=== PATIENT | male | born 1980 | race African-American/Black ===

== ENCOUNTER 2016-07-11 08:00 | Day surgery (SDC) | payer BC ==
[~2016-07-11 08:00] MED LIST: Lactated Ringers 1,000 ML IV SCH; Sodium Chloride 0.9% 10 ML Syringe FLUSH PRN
[2016-07-11] MEDS ORDERED: Ondansetron 4 MG/2 ML SDV ONE (08:17)
[2016-07-11] MEDS ORDERED: Glycopyrrolate 0.2 MG/ML SDV ONE (08:17)
[2016-07-11] MEDS ORDERED: Midazolam 1 MG/ML 2 ML SDV ONE ×2 (08:17→08:21)
[2016-07-11] MEDS ORDERED: Rocuronium 100 MG/10 ML MDV ONE (08:17)
[2016-07-11] MEDS ORDERED: ceFAZolin 1 GM Vial ONE (08:17)
[2016-07-11] MEDS ORDERED: Dexamethasone 10 MG/ML SDV ONE (08:17)
[2016-07-11] MEDS ORDERED: Neostigmine Methylsulfate 1 MG/ML 5 ML Syringe ONE (08:17)
[2016-07-11] MEDS ORDERED: fentaNYL 250 MCG/5 ML SDV ONE ×2 (08:17→08:22)
[2016-07-11] MEDS ORDERED: Propofol 200 MG/20 ML SDV ONE ×2 (08:17→08:22)
--- NOTE | 2016-07-11 11:42 | OR ---
Date of Procedure: 07/11/2016 PREOPERATIVE DIAGNOSIS: Balanitis. POSTOPERATIVE DIAGNOSIS: Balanitis. PROCEDURE: Circumcision. ANESTHESIA: General. COMPLICATION: None. SPECIMEN: Foreskin-not submitted. ESTIMATED BLOOD LOSS: Negligible. DRAINS: None. COMPLICATIONS: None. WHAT WAS DONE: The patient was placed on the operative table in the supine position. Under general anesthesia, the foreskin was retracted approximately 0.5 cm below the coronal margin. A circumferential incision was made. I then placed the foreskin back in anatomic position, and roughly at the glanular margin level. We made a circumferential incision in cigar band fashion, this was removed, I did make a dorsal slit in removing it. Hemostasis was inspected for and ensured with electrocautery. The 4-0 Vicryl was used for closure, two sutures were placed to approximate the median raphe to the frenulum, and one suture was placed direct dorsal, quartering sutures were placed, and three stitches were placed in each quadrant. The wound was infiltrated with 2% lidocaine. A compression dressing was placed with some Elastoplast which was wrapped "accordion fashion", and a piece of a Elastoplast was just put around the penis and taped to itself not wrapped continually circumferential. He tolerated this without difficulty. ROMEL Stahl MD /[id number]
[2016-07-11 11:45] VITALS: BP 138/97
== END 2016-07-11 13:47 | disposition home or self-care (01) ==
LOC: LL.SDS 08:00
PROVIDERS: ATTEND Urology
DX: N48.1 Balanitis (principal)
CPT/HCPCS: 54161; J0690; J1100; J2250; J2405; J2704; J3010; J7120

== ENCOUNTER 2016-08-15 05:24 | Emergency (ER) | payer BC ==
[2016-08-15] MEDS ORDERED: Sodium Chloride 0.9% 10 ML Syringe FLUSH PRN (05:32)
--- NOTE | 2016-08-15 05:32 | EDM.PDOC ---
ED HPI HEAD INJURY - General Chief Complaint: Neuro Symptoms/Deficits Stated Complaint: Head injury Time Seen by Provider: 08/15/16 05:25 Source of Information: Reports: Patient, EMS, EMS notes reviewed. Denies: Old records (No [facility] records available) History Limitations: Reports: Altered mental status - History of Present Illness INITIAL COMMENTS - FREE TEXT/NARRATIVE: Patient was brought to the emergency room via ambulance with basic transport for evaluation of a head injury, which occurred at work at about 04:45 hours this morning. 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 Since that time the patient has been lethargic with frequent episodes of emesis. Secondary to his current mental status a complete history could not be obtained. No apparent history of seizure activity or other injuries or complaints. The patient is somewhat more alert at time of my arrival to the emergency room. He denies any pain or discomfort, although he is a poor historian as above. He did not have any symptoms prior to the above injury with the patient now denying any head injury. The patient apparently had a brief episode of loss of consciousness after falling backwards on the occipital region and was observed at the nurse's station at [facility] for a few minutes with moderate sedation and recurrent emesis, which became somewhat darker with ambulance called at that time. No apparent hematemesis or coffee- ground emesis noted. The patient denies any recent NSAID use. His last oral intake was at about 03:00 hours today. No treatment was given either by the humanities division chair or occupational nurse at [facility] Symptom Onset Date: 08/15/16 Symptom Onset Time: 04:45 Timing/Duration: Reports: Improving Location: Reports: occipital Place of Occurrence: work Improves with: none Worsens with: none Context: Reports: fall Associated Symptoms: Reports: malaise, nausea/vomiting, loss of consciousness, dizziness, confused. Denies: headache, seizure, weakness, visual changes Treatments WILLOWER: Reports: Other (see below) (None) - Related Data Allergies/ADRs: Allergies Allergy/AdvReac Type Severity Reaction Status Date / Time No Known Allergies Allergy Verified 08/15/16 05:26 Home Meds: Home Meds . [No Known Home Meds] 08/15/16 [History] Past Medical History - Past Health History Medical/Surgical History: Denies Medical/Surgical History (Unable to obtain complete history however no her previous surgeries, chronic illnesses, previous seizures, known developmental delay, etc.) ED ROS GENERAL - Review of Systems Review Of Systems: Unable To Obtain ED EXAM, HEAD INJURY - Physical Exam Exam: See Below Exam Limited By: Altered mental status General Appearance: lethargic, mild distress Head: atraumatic, normocephalic. No: scalp hematoma, Valencia's Sign, facial swelling, sinus tenderness, facial tenderness, raccoon eyes Nexus Criteria: No: posterior, midline cervical tenderness, evidence of intoxication, altered level of consciousness, focal neurological deficit, painful distracting injuries Eyes: bilateral eye: EOMI, normal fundi, normal inspection (No nystagmus), PERRL Ears: normal external exam, normal canal, hearing grossly normal, normal TMs Nose: normal inspection, normal mucousa, no blood Throat/Mouth: Normal inspection, Normal lips, Normal teeth, Normal gums, Normal oropharynx, Normal voice, No airway compromise Neck: non-tender, full range of motion, normal alignment, normal inspection Respiratory: no respiratory distress, lungs clear, normal breath sounds, no accessory muscle use, chest non-tender Cardiovascular: normal peripheral pulses, regular rate, rhythm, no edema, no gallop, no JVD, no murmur, no rub. No: gallop/S3, gallop/S4, friction rub GI/Abdominal Exam (Abbreviated): normal bowel sounds, soft, non tender, no organomegaly, no distention, no abnormal bruit, no mass. No: guarding (Male) Exam: No hernia, Normal inspection, Normal prostate, Circumcised Rectal (Males) Exam: Normal rectal tone, Prostate normal, Heme + stool ( Strongly positive), Other (Brown stool). No: Hemorrhoids, Mass, Tenderness (No Florian space tenderness) Back Exam: normal inspection, full range of motion. No: CVA tenderness (L), CVA tenderness (R), muscle spasm Extremities: no evidence of injury, normal range of motion, non-tender, no pedal edema, pelvis stable Neurologic: no motor/sensory deficits, normal mood/affect, other (Negative Babinski's, unable to cooperate with complete neurological exam no gross deficits, moderate confusion and lethargy slowly improving during evaluation). No: oriented x 3 (Uncertain about date and exact location) Skin: Other (Multiple forehead scars agree secondary to cultural issues) - Jenny Coma Score Best Eye Response ([place]): (4) open spontaneously Best Verbal Response ([place]): (4) confused conversation Best Motor Response (Jenny): (6) obeys commands Jenny Total: 14 EKG INTERPRETATION EKG Date: 08/15/16 Time: 05:59 Rhythm: NSR Rate (beats/min): 559 [place]: normal (Left cardiac axis) P-wave: enlarged (Mild Diffuse biphasic P waves with mild poor R wave progression in the anterior leads) QRS: RBBB (QRS interval of 0.10 seconds representing an incomplete right bundle branch block with T-wave inversion in leads 3 and V1) ST-T: normal QT: normal MN/PQ Interval: 0.19 seconds Comparison: NA - no prior EKG EKG Interpretation Comments: 1. No acute ischemic changes 2. Incomplete right bundle branch block Course - Vital Signs Last Recorded V/S: Last Vital Signs Temp 36.3 C 08/15/16 07:13 Pulse 72 08/15/16 07:48 Resp 15 08/15/16 07:48 BP 138/92 H 08/15/16 07:48 Pulse Ox 100 08/15/16 07:48 See Trauma Code Sheet - Orders/Labs/Meds Orders: Active Orders 24 hr Category Date Time Status Blood Glucose Check, Bedside [RC] STAT Care 08/15/16 05:25 Active Cardiac Monitoring [RC] . DIRECTED Care 08/15/16 05:33 Active EKG Documentation Completion [RC] ASDIRECTED Care 08/15/16 05:33 Active Oxygen Therapy, ED [RC] CONTINUOUS Care 08/15/16 05:33 Active Peripheral IV Care [RC] . DIRECTED Care 08/15/16 05:33 Active Pulse Oximetry [RC] CONTINUOUS Care 08/15/16 05:33 Active Up With Assistance [RC] PFP Care 08/15/16 05:33 Active Vital Signs [RC] PFP Care 08/15/16 05:33 Active Nothing per Oral Now Diet [DIET] Diet 08/15/16 Breakfast Active Abdomen Series w Chest 1V [CR] Stat Exams 08/15/16 05:35 Taken Head wo Cont [CT] Stat Exams 08/15/16 05:34 Taken CULTURE URINE [RM] Routine Lab 08/15/16 07:05 Received PROLACTIN [REF] Stat Lab 08/15/16 05:50 Received Lactated Ringers [Ringers, Lactated] 1,000 ml Med 08/15/16 07:30 Active IV ASDIRECTED Sodium Chloride 0.9% [Saline Flush] Med 08/15/16 05:32 Active 10 ml FLUSH ASDIRECTED PRN Obtain Past Medical Record [OM.PC] Urgent Oth 08/15/16 05:33 Active Peripheral IV Insertion Adult [OM.PC] Stat Oth 08/15/16 05:33 Ordered Resuscitation Status Stat Resus Stat 08/15/16 05:32 Ordered Medication Orders Lactated Ringer's (Ringers, Lactated) 1,000 mls @ 100 mls/hr IV ASDIRECTED THERESA Last Admin: 08/15/16 07:19 Dose: 100 mls/hr Sodium Chloride (Saline Flush) 10 ml FLUSH ASDIRECTED PRN PRN Reason: Keep Vein Open Labs: Laboratory Tests 08/15/16 08/15/16 08/15/16 Range/Units 05:50 05:50 05:50 WBC 9.6 (4.0-10.2) K/uL RBC 5.16 (4.33-5.41) M/uL Hgb 15.3 (13.1-16.8) g/dL Hct 43.4 (39.0-49.0) % MCV 84.1 (84.0-98.0) fL MCH 29.7 (28.2-33.3) pg MCHC 35.3 (31.7-36.0) g/dL RDW 13.1 (11.2-14.1) % Plt Count 185 (150-350) K/uL Neut % (Auto) 48.0 (45.0-80.0) % Lymph % (Auto) 42.6 (10.0-50.0) % [place] % (Auto) 7.6 (2.0-14.0) % Eos % (Auto) 1.4 (0.0-5.0) % Baso % (Auto) 0.4 (0.0-2.0) % Neut # (Auto) 4.62 (1.40-7.00) K/uL Lymph # (Auto) 4.09 H (0.50-3.50) K/uL [place] # (Auto) 0.73 (0.00-1.00) K/uL Eos # (Auto) 0.13 (0.00-0.50) K/uL Baso # (Auto) 0.04 (0.00-0.20) K/uL PT 11.7 (9.8-11.7) SEC INR 1.1 APTT 25.9 (23.5-30.0) SEC D-Dimer, Quantitative < 100 (0-400) ng/mL Sodium (136-145) mmol/L Potassium (3.5-5.1) mmol/L Chloride (98-107) mmol/L Carbon Dioxide (21.0-32.0) mmol/L BUN (7-18) mg/dL Creatinine (0.51-1.17) mg/dL Est Cr Clr Drug Dosing Estimated GFR (MDRD) mL/min Glucose (74-106) mg/dL Lactic Acid (0.4-2.0) mmol/L Uric Acid (2.6-7.2) mg/dL Calcium (8.5-10.1) mg/dL Magnesium (1.8-2.4) mg/dL Total Bilirubin (0.2-1.0) mg/dL Direct Bilirubin (0.0-0.2) mg/dL Indirect Bilirubin mg/dL AST (15-37) U/L ALT (12-78) U/L Alkaline Phosphatase (46-116) IU/L Creatine Kinase (26-308) U/L Creatine Kinase Index (0.0-2.5) % CK-MB (CK-2) (0.00-3.60) ng/mL Troponin I (0.000-0.056) ng/mL Bga-[id number] Pept (0-125) pg/mL Total Protein (6.4-8.2) g/dL Albumin (3.4-5.0) g/dL Amylase (25-115) U/L Lipase (73-393) U/L TSH, Ultra Sensitive (0.358-3.740) mIU/mL Specimen Type Urine Color Urine Appearance Urine pH (5.0-9.0) Ur Specific [place] (1.005-1.030) Urine Protein (NEGATIVE) mg/dL Urine Glucose (UA) (NEGATIVE) mg/dL Urine Ketones (NEGATIVE) mg/dL Urine Occult Blood (NEGATIVE) Urine Nitrite (NEGATIVE) Urine Bilirubin (NEGATIVE) Urine Urobilinogen (0.2-1.0) E.U./dL Ur Leukocyte Esterase (NEGATIVE) Urine RBC /HPF Urine WBC /HPF Urine Bacteria (NONE TO FEW) /HPF Urine Opiates Screen (NEGATIVE) Urine Methadone Screen (NEGATIVE) U Acetaminophen Screen (NEGATIVE) Ur Barbiturates Screen (NEGATIVE) Ur Tricyclics Screen (NEGATIVE) Ur Phencyclidine Scrn (NEGATIVE) Ur Amphetamine Screen (NEGATIVE) U Methamphetamines Scrn (NEGATIVE) U Benzodiazepines Scrn (NEGATIVE) U Cocaine Metab Screen (NEGATIVE) U Marijuana (THC) Screen (NEGATIVE) Ethyl Alcohol (0.000-0.080) g/dL H. pylori IgG Antibody (NEGATIVE) 08/15/16 08/15/16 08/15/16 Range/Units 05:50 05:50 05:50 WBC (4.0-10.2) K/uL RBC (4.33-5.41) M/uL Hgb (13.1-16.8) g/dL Hct (39.0-49.0) % MCV (84.0-98.0) fL MCH (28.2-33.3) pg MCHC (31.7-36.0) g/dL RDW (11.2-14.1) % Plt Count (150-350) K/uL Neut % (Auto) (45.0-80.0) % Lymph % (Auto) (10.0-50.0) % [place] % (Auto) (2.0-14.0) % Eos % (Auto) (0.0-5.0) % Baso % (Auto) (0.0-2.0) % Neut # (Auto) (1.40-7.00) K/uL Lymph # (Auto) (0.50-3.50) K/uL [place] # (Auto) (0.00-1.00) K/uL Eos # (Auto) (0.00-0.50) K/uL Baso # (Auto) (0.00-0.20) K/uL PT (9.8-11.7) SEC INR APTT (23.5-30.0) SEC D-Dimer, Quantitative (0-400) ng/mL Sodium 136 (136-145) mmol/L Potassium 3.2 L (3.5-5.1) mmol/L Chloride 101 (98-107) mmol/L Carbon Dioxide 22.7 (21.0-32.0) mmol/L BUN 17 (7-18) mg/dL Creatinine 1.01 (0.51-1.17) mg/dL Est Cr Clr Drug Dosing TNP Estimated GFR (MDRD) > 60 mL/min Glucose 141 H (74-106) mg/dL Lactic Acid 3.1 H (0.4-2.0) mmol/L Uric Acid 5.8 (2.6-7.2) mg/dL Calcium 8.3 L (8.5-10.1) mg/dL Magnesium 1.9 (1.8-2.4) mg/dL Total Bilirubin 1.6 H (0.2-1.0) mg/dL Direct Bilirubin (0.0-0.2) mg/dL Indirect Bilirubin mg/dL AST 31 (15-37) U/L ALT 43 (12-78) U/L Alkaline Phosphatase 69 (46-116) IU/L Creatine Kinase 574 H (26-308) U/L Creatine Kinase Index 0.4 (0.0-2.5) % CK-MB (CK-2) 2.40 (0.00-3.60) ng/mL Troponin I 0.000 (0.000-0.056) ng/mL Dyo-A-Cceclxfnmho Pept 10 (0-125) pg/mL Total Protein 7.5 (6.4-8.2) g/dL Albumin 3.8 (3.4-5.0) g/dL Amylase 52 (25-115) U/L Lipase 108 (73-393) U/L TSH, Ultra Sensitive 1.636 (0.358-3.740) mIU/mL Specimen Type Urine Color Urine Appearance Urine pH (5.0-9.0) Ur Specific [place] (1.005-1.030) Urine Protein (NEGATIVE) mg/dL Urine Glucose (UA) (NEGATIVE) mg/dL Urine Ketones (NEGATIVE) mg/dL Urine Occult Blood (NEGATIVE) Urine Nitrite (NEGATIVE) Urine Bilirubin (NEGATIVE) Urine Urobilinogen (0.2-1.0) E.U./dL Ur Leukocyte Esterase (NEGATIVE) Urine RBC /HPF Urine WBC /HPF Urine Bacteria (NONE TO FEW) /HPF Urine Opiates Screen (NEGATIVE) Urine Methadone Screen (NEGATIVE) U Acetaminophen Screen (NEGATIVE) Ur Barbiturates Screen (NEGATIVE) Ur Tricyclics Screen (NEGATIVE) Ur Phencyclidine Scrn (NEGATIVE) Ur Amphetamine Screen (NEGATIVE) U Methamphetamines Scrn (NEGATIVE) U Benzodiazepines Scrn (NEGATIVE) U Cocaine Metab Screen (NEGATIVE) U Marijuana (THC) Screen (NEGATIVE) Ethyl Alcohol 0.001 (0.000-0.080) g/dL H. pylori IgG Antibody Negative (NEGATIVE) 08/15/16 08/15/16 08/15/16 Range/Units 06:45 07:05 07:05 WBC (4.0-10.2) K/uL RBC (4.33-5.41) M/uL Hgb (13.1-16.8) g/dL Hct (39.0-49.0) % MCV (84.0-98.0) fL MCH (28.2-33.3) pg MCHC (31.7-36.0) g/dL RDW (11.2-14.1) % Plt Count (150-350) K/uL Neut % (Auto) (45.0-80.0) % Lymph % (Auto) (10.0-50.0) % [place] % (Auto) (2.0-14.0) % Eos % (Auto) (0.0-5.0) % Baso % (Auto) (0.0-2.0) % Neut # (Auto) (1.40-7.00) K/uL Lymph # (Auto) (0.50-3.50) K/uL [place] # (Auto) (0.00-1.00) K/uL Eos # (Auto) (0.00-0.50) K/uL Baso # (Auto) (0.00-0.20) K/uL PT (9.8-11.7) SEC INR APTT (23.5-30.0) SEC D-Dimer, Quantitative (0-400) ng/mL Sodium (136-145) mmol/L Potassium (3.5-5.1) mmol/L Chloride (98-107) mmol/L Carbon Dioxide (21.0-32.0) mmol/L BUN (7-18) mg/dL Creatinine (0.51-1.17) mg/dL Est Cr Clr Drug Dosing Estimated GFR (MDRD) mL/min Glucose (74-106) mg/dL Lactic Acid (0.4-2.0) mmol/L Uric Acid (2.6-7.2) mg/dL Calcium (8.5-10.1) mg/dL Magnesium (1.8-2.4) mg/dL Total Bilirubin 1.6 H (0.2-1.0) mg/dL Direct Bilirubin 0.2 (0.0-0.2) mg/dL Indirect Bilirubin 1.4 mg/dL AST (15-37) U/L ALT (12-78) U/L Alkaline Phosphatase (46-116) IU/L Creatine Kinase (26-308) U/L Creatine Kinase Index (0.0-2.5) % CK-MB (CK-2) (0.00-3.60) ng/mL Troponin I (0.000-0.056) ng/mL Psp-Q-Ted[place]u Pept (0-125) pg/mL Total Protein (6.4-8.2) g/dL Albumin (3.4-5.0) g/dL Amylase (25-115) U/L Lipase (73-393) U/L TSH, Ultra Sensitive (0.358-3.740) mIU/mL Specimen Type Urincc Urine Color Yellow Urine Appearance Clear Urine pH 7.0 (5.0-9.0) Ur Specific [place] 1.025 (1.005-1.030) Urine Protein Negative (NEGATIVE) mg/dL Urine Glucose (UA) Negative (NEGATIVE) mg/dL Urine Ketones Negative (NEGATIVE) mg/dL Urine Occult Blood Negative (NEGATIVE) Urine Nitrite Negative (NEGATIVE) Urine Bilirubin Negative (NEGATIVE) Urine Urobilinogen 0.2 (0.2-1.0) E.U./dL Ur Leukocyte Esterase Negative (NEGATIVE) Urine RBC 0-5 /HPF Urine WBC 0-5 /HPF Urine Bacteria Few (NONE TO FEW) /HPF Urine Opiates Screen Negative (NEGATIVE) Urine Methadone Screen Negative (NEGATIVE) U Acetaminophen Screen Negative (NEGATIVE) Ur Barbiturates Screen Negative (NEGATIVE) Ur Tricyclics Screen Negative (NEGATIVE) Ur Phencyclidine Scrn Negative (NEGATIVE) Ur Amphetamine Screen Negative (NEGATIVE) U Methamphetamines Scrn Negative (NEGATIVE) U Benzodiazepines Scrn Negative (NEGATIVE) U Cocaine Metab Screen Negative (NEGATIVE) U Marijuana (THC) Screen Negative (NEGATIVE) Ethyl Alcohol (0.000-0.080) g/dL H. pylori IgG Antibody (NEGATIVE) Stat Accu check on patient's arrival of 128 mg percent Urine specimen sent up for culture and sensitivity Microbiology 08/15/16 06:15 Stool Occult Blood (RACHELLE) - Final Stool / Feces Hemoccult strongly positive as above Meds: Medications Generic Name Dose Route Start Last Admin Trade Name Freq PRN Reason Stop Dose Admin Lactated Ringer's 1,000 mls @ 100 mls/hr 08/15/16 07:30 08/15/16 07:19 Ringers, Lactated IV 100 mls/hr ASDIRECTED THERESA Administration Sodium Chloride 10 ml 08/15/16 05:32 Saline Flush FLUSH ASDIRECTED PRN Keep Vein Open Discontinued Medications Generic Name Dose Route Start Last Admin Trade Name Freq PRN Reason Stop Dose Admin Famotidine 40 mg 08/15/16 05:55 Pepcid IVPUSH 08/15/16 05:56 ONETIME ONE Lactated Ringer's 1,000 mls @ 999 mls/hr 08/15/16 05:37 Ringers, Lactated IV 08/15/16 06:37 .BOLUS ONE Ondansetron HCl 4 mg 08/15/16 05:55 Zofran IVPUSH 08/15/16 05:56 ONETIME ONE Ondansetron HCl 4 mg 08/15/16 07:04 08/15/16 07:08 Zofran IVPUSH 08/15/16 07:05 4 mg ONETIME ONE Administration Pantoprazole Sodium 40 mg 08/15/16 06:06 Protonix Iv IVPUSH 08/15/16 06:07 ONETIME ONE - Radiology Interpretation Free Text/Narrative:: teletypesetter monitor shows normal sinus rhythm with heart rate in the 60s to 80s with no ectopy or arrhythmia Telephone consultation at 06:06 the radiology department at [facility]. 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 Some borderline cardiomegaly with left lower lobe atelectasis versus mild pulmonary infiltrates and small pleural effusion. No evidence of pneumothorax, rib fractures, etc. Mild calcification of the aortic valve also noted. CT Results Date: 08/15/16 CT Results Time: 06:06 Departure - Departure Time of Disposition: 07:55 Disposition: DC/Tfer to [facility] 02 Condition: fair Clinical Impression: Incomplete right bundle branch block, Lactic acid increased, Hypokalemia, Hyperbilirubinemia, Elevated CPK Head injury Qualifiers: Encounter type: initial encounter Qualified Code(s): S09.90XA - Unspecified injury of head, initial encounter Nausea & vomiting Qualifiers: Vomiting type: unspecified Vomiting Intractability: non-intractable Qualified Code(s): R11.2 - Nausea with vomiting, unspecified Hypertension Qualifiers: Hypertension type: essential hypertension Qualified Code(s): I10 - Essential ( primary) hypertension Referrals: Edmundo Alicea MD [Primary Care Provider] - Forms: ED Department Discharge, Interfacility Transfer EMTALA - Problem List & Annotations (1) Head injury SNOMED Code(s): 30123235 Code(s): S09.90XA - UNSPECIFIED INJURY OF HEAD, INITIAL ENCOUNTER Status: Acute Priority: High Current Visit: Yes Onset Date: 08/15/16 Annotation/ Comment:: Trauma code called by this physician on patient's arrival to this facility secondary to clinical presentation. Negative CT scan of the head other than congenital defect as above with no evidence of acute CVA, cerebral hemorrhage, etc. No apparent previous history of seizure activity or developmental delay, although the patient is a poor historian as above. Secondary to patient's neurological status, mechanism of injury, and congenital skull defect as above a MRI of the head and further evaluation are warranted. Telephone consultation at 06:40a.m. with Dr. Faith, emergency room physician at [facility], who refused to accept the patient for transfer, since he felt that this patient did not meet their trauma criteria and their facility were on divert. Subsequent telephone consultation at 06:[address] Ellington, emergency room physician at [facility], who does accept the patient for further treatment and evaluation, with no further treatment recommendations given. A blank [place] form sent with the patient with this to be completed by his accepting physicians. Although this injury did occur at work, this is likely not a Worker's Compensation injury. Qualifiers: Encounter type: initial encounter Qualified Code(s): S09.90XA - Unspecified injury of head, initial encounter (2) Incomplete right bundle branch block SNOMED Code(s): 092657540 Code(s): I45.10 - UNSPECIFIED RIGHT BUNDLE-BRANCH BLOCK Status: Chronic Priority: Medium Current Visit: Yes Onset Date: ~08/15/16 Annotation/ Comment:: No apparent chest pain or anginal type symptoms other than dizziness as above. No arrhythmia during ER evaluation. Cardiac enzymes and EKG were otherwise normal (3) Nausea & vomiting SNOMED Code(s): 94866645 Code(s): R11.2 - NAUSEA WITH VOMITING, UNSPECIFIED Status: Acute Priority : High Current Visit: Yes Onset Date: 08/15/16 Annotation/Comment:: Nonspecific etiology of patient's nausea/emesis, however possibly secondary to head injury. Note Hemoccult-positive stools, although the patient denies any abdominal pain, recent NSAID use, etc.. IV bolus of LR initiated in the emergency room with additional high-dose IV Pepcid and Protonix given. Qualifiers: Vomiting type: unspecified Vomiting Intractability: non-intractable Qualified Code(s): R11.2 - Nausea with vomiting, unspecified (4) Hypertension SNOMED Code(s): 84702642 Code(s): I10 - ESSENTIAL (PRIMARY) HYPERTENSION Status: Acute Priority: High Current Visit: Yes Onset Date: ~08/15/16 Annotation/Comment:: Mildly elevated blood pressures in the emergency room not requiring medical therapy with no known previous history of hypertension Qualifiers: Hypertension type: essential hypertension Qualified Code(s): I10 - Essential (primary) hypertension (5) Elevated CPK SNOMED Code(s): 510109821 Code(s): R74.8 - ABNORMAL LEVELS OF OTHER SERUM ENZYMES Status: Acute Priority: Medium Current Visit: Yes Onset Date: 08/15/16 Annotation/ Comment:: CPK elevated with no evidence of significant additional trauma, muscle injury, rhabdomyolysis, etc. IV fluids given as above. 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 Consider repeat lactic acid level within the next few hours - Problem List Review Problem List Initiated/Reviewed/Updated: Yes - My Orders Last 24 Hours: My Active Orders 08/15/16 05:25 Blood Glucose Check, Bedside [RC] STAT 08/15/16 05:32 Sodium Chloride 0.9% [Saline Flush] 10 ml FLUSH ASDIRECTED PRN Resuscitation Status Stat 08/15/16 05:33 Cardiac Monitoring [RC] . DIRECTED EKG Documentation Completion [RC] ASDIRECTED Oxygen Therapy, ED [RC] CONTINUOUS Peripheral IV Care [RC] . DIRECTED Pulse Oximetry [RC] CONTINUOUS Up With Assistance [RC] PFP Vital Signs [RC] PFP Obtain Past Medical Record [OM.PC] Urgent Peripheral IV Insertion Adult [OM.PC] Stat 08/15/16 05:34 Head wo Cont [CT] Stat 08/15/16 05:35 Abdomen Series w Chest 1V [CR] Stat 08/15/16 05:50 PROLACTIN [REF] Stat 08/15/16 07:05 CULTURE URINE [RM] Routine 08/15/16 07:30 Lactated Ringers [Ringers, Lactated] 1,000 ml IV ASDIRECTED 08/15/16 Breakfast Nothing per Oral Now Diet [DIET] - Assessment/Plan Last 24 Hours: My Active Orders 08/15/16 05:25 Blood Glucose Check, Bedside [RC] STAT 08/15/16 05:32 Sodium Chloride 0.9% [Saline Flush] 10 ml FLUSH ASDIRECTED PRN Resuscitation Status Stat 08/15/16 05:33 Cardiac Monitoring [RC] . DIRECTED EKG Documentation Completion [RC] ASDIRECTED Oxygen Therapy, ED [RC] CONTINUOUS Peripheral IV Care [RC] . DIRECTED Pulse Oximetry [RC] CONTINUOUS Up With Assistance [RC] PFP Vital Signs [RC] PFP Obtain Past Medical Record [OM.PC] Urgent Peripheral IV Insertion Adult [OM.PC] Stat 08/15/16 05:34 Head wo Cont [CT] Stat 08/15/16 05:35 Abdomen Series w Chest 1V [CR] Stat 08/15/16 05:50 PROLACTIN [REF] Stat 08/15/16 07:05 CULTURE URINE [RM] Routine 08/15/16 07:30 Lactated Ringers [Ringers, Lactated] 1,000 ml IV ASDIRECTED 08/15/16 Breakfast Nothing per Oral Now Diet [DIET] Assessment:: As above Plan: As above. Extensive precautions were given to the patient, who is in agreement with the treatment plan. Ambulance transfer with institutional aide accompaniment NOTE: The patient's name was initially spelled incorrectly with actual spelling of his last name of "Hand."
[2016-08-15] MEDS ORDERED: Lactated Ringers 1,000 ML IV ONE (05:37)
[2016-08-15] MEDS ORDERED: Ondansetron 4 MG/2 ML SDV IVPUSH ONE ×2 (05:55→07:04)
[2016-08-15] MEDS ORDERED: Famotidine 20 MG/2 ML SDV IVPUSH ONE (05:55)
[2016-08-15] MEDS ORDERED: Pantoprazole 40 MG Vial IVPUSH ONE (06:06)
[2016-08-15 06:25] LABS: CHLORIDE,CL 101 mmol/L (98-107); SODIUM,NA 136 mmol/L (136-145)
[2016-08-15] MEDS ORDERED: Lactated Ringers 1,000 ML IV SCH (07:30)
[2016-08-15 07:48] VITALS: BP 138/92
== END 2016-08-15 07:55 ==
LOC: MERGE 05:24 → LL.ED 05:24
DX: I45.10 Unspecified right bundle-branch block (principal); S09.90XA Unspecified injury of head, initial encounter; I10 Essential (primary) hypertension; E87.6 Hypokalemia; E80.6 Other disorders of bilirubin metabolism; R74.8 Abnormal levels of other serum enzymes; W19.XXXA Unspecified fall, initial encounter
CPT/HCPCS: 36415; 70450; 74022; 80053; 80305; 81001; 82150; 82248; 82272; 82550; 82553; 83605; 83690; 83735; 83880; 84146; 84443; 84484; 84550; 85025; 85379; 85610; 85730; 86318; 87086; 93005; 96361; 96374; 96375; 96376; 99285; C9113; G0390; G0480; J2405; J7120; 82247; S0028

== ENCOUNTER 2016-09-12 13:12 | Emergency (ER) | payer BC ==
[2016-09-12] MEDS ORDERED: Ondansetron 4 MG/2 ML SDV IVPUSH ONE ×2 (13:50→19:46)
[2016-09-12] MEDS ORDERED: Sodium Chloride 0.9% 1,000 ML IV ONE ×2 (14:12→15:23)
--- NOTE | 2016-09-12 14:12 | EDM.PDOC ---
ED HPI GENERAL MEDICAL PROBLEM - General Chief Complaint: General Stated Complaint: dizzy, nauseated Time Seen by Provider: 09/12/16 13:44 Source of Information: Reports: Patient History Limitations: Reports: Language barrier - History of Present Illness INITIAL COMMENTS - FREE TEXT/NARRATIVE: Patient presents complaining of feeling lightheaded at home. Dizziness is better when he lays down. Hot flashes but is not aware of any fever. Also nausea with emesis. General abdominal discomfort, non-radiating. No loose stools /bowel changes. He feels as though this is a "virus". Was seen approximately a month ago for falling at work after having dizzy spell. Hit back of head. Extensive workup performed here, including head CT. Ultimately sent to [facility]. Patient says they sent him home and there was no plan for additional medical care or follow up. He is unaware of any specific diagnosis given to him. During the past month he has continued to feel more tired than usual but had no syncope /near syncope/emesis or other issues. No other complaints. Is originally from [place] and has accent, difficult to understand at times. Poor/vague with his history. Very soft spoken. Noted to have elevated lactic acid and prolactin level last month. Mild hypokalemia. Mild increase in bilirubin. - Related Data Allergies Allergy/AdvReac Type Severity Reaction Status Date / Time No Known Allergies Allergy Verified 09/12/16 13:28 Home Meds: Home Meds . 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 Denies: fever, chills, weakness, night sweats, diaphoresis, weight loss, weight gain HEENT: Reports: No symptoms Respiratory: Reports: No Symptoms Cardiovascular: Reports: Lightheadedness, Other (felt like he may pass out earlier). Denies: Chest pain, Dyspnea on exertion, Edema, Syncope Endocrine: Denies: polydypsia, polyuria GI/Abdominal: Reports: Abdominal pain, Decreased appetite, Nausea, Vomiting. Denies: Black stool, Bloody stool, Constipation, Diarrhea, Difficulty swallowing , Hematemesis, Hematochezia, Melena : Reports: no symptoms Skin: Reports: no symptoms Neurological: Reports: Dizziness, Gait Disturbance. Denies: Confusion, Headache , Numbness, Paresthesia, Pre-Existing Deficit, Seizure, Tingling, Tremors, Trouble Speaking, Difficulty Walking, Change in Speech Psychiatric: Reports: No symptoms ED EXAM, GENERAL - Physical Exam Exam: See Below Exam Limited By: No limitations General Appearance: alert, WD/WN, no apparent distress, other (very quiet demeanor) Eye Exam: bilateral eye: EOMI, PERRL Ears: normal external exam, normal canal, hearing grossly normal, normal TMs Nose: normal inspection Throat/Mouth: Normal inspection, Normal lips, Normal oropharynx, Normal voice, No airway compromise Head: atraumatic, normocephalic Neck: normal inspection, supple, non-tender, full range of motion Respiratory/Chest: no respiratory distress, lungs clear, normal breath sounds, no accessory muscle use Cardiovascular: normal peripheral pulses, regular rate, rhythm, no edema, no JVD , no murmur Peripheral Pulses: 2+: radial (L), radial (R), dorsalis pedis (L), dorsalis pedis (R) GI/Abdominal: Soft, No Distention, Tender (mild, diffuse tenderness. Non- focal. ), Other (decreased bowel sounds noted. ) (Male) Exam: Deferred Rectal (Males) Exam: Deferred Back Exam: normal inspection. No: CVA tenderness (L), CVA tenderness (R) Extremities: normal inspection, normal range of motion, non-tender, no pedal edema, normal capillary refill Neurological: alert, oriented, CN II-XII intact, normal cognition, normal reflexes, no motor/sensory deficits Psychiatric: flat affect Skin Exam: Warm, Dry, Intact, Normal color, No rash Course - Vital Signs Last Recorded V/S: Last Vital Signs Temp 36.4 C 05/10/17 17:10 Pulse 63 09/12/16 18:20 Resp 18 09/12/16 18:20 BP 115/76 09/12/16 18:20 Pulse Ox 100 09/12/16 18:20 - Orders/Labs/Meds Orders: Active Orders 24 hr Category Date Time Status Head wo Cont [CT] Stat Exams 09/12/16 16:47 Taken PROLACTIN [REF] Stat Lab 09/12/16 15:45 Received Sodium Chloride 0.9% [Saline Flush] Med 09/12/16 13:49 Active 10 ml FLUSH ASDIRECTED PRN Saline Lock Insert [OM.PC] Stat Oth 09/12/16 13:50 Ordered Medication Orders Sodium Chloride (Saline Flush) 10 ml FLUSH ASDIRECTED PRN PRN Reason: Keep Vein Open Last Admin: 09/12/16 14:13 Dose: 10 ml Labs: Laboratory Tests 09/12/16 09/12/16 09/12/16 Range/Units 13:50 13:50 13:50 WBC 8.3 (4.0-10.2) K/uL RBC 5.04 (4.33-5.41) M/uL Hgb 15.0 (13.1-16.8) g/dL Hct 42.5 (39.0-49.0) % MCV 84.3 (84.0-98.0) fL MCH 29.8 (28.2-33.3) pg MCHC 35.3 (31.7-36.0) g/dL RDW 13.0 (11.2-14.1) % Plt Count 175 (150-350) K/uL Neut % (Auto) 34.3 L (45.0-80.0) % Lymph % (Auto) 53.7 H (10.0-50.0) % Glynn % (Auto) 9.3 (2.0-14.0) % Eos % (Auto) 2.3 (0.0-5.0) % Baso % (Auto) 0.4 (0.0-2.0) % Neut # (Auto) 2.83 (1.40-7.00) K/uL Lymph # (Auto) 4.43 H (0.50-3.50) K/uL Glynn # (Auto) 0.77 (0.00-1.00) K/uL Eos # (Auto) 0.19 (0.00-0.50) K/uL Baso # (Auto) 0.03 (0.00-0.20) K/uL Sodium 139 (136-145) mmol/L Potassium 3.2 L (3.5-5.1) mmol/L Chloride 102 (98-107) mmol/L Carbon Dioxide 27.1 (21.0-32.0) mmol/L BUN 17 (7-18) mg/dL Creatinine 0.99 (0.51-1.17) mg/dL Est Cr Clr Drug Dosing 111.18 mL/min Estimated GFR (MDRD) > 60 mL/min Glucose 131 H (74-106) mg/dL Lactic Acid 3.9 H (0.4-2.0) mmol/L Calcium 8.6 (8.5-10.1) mg/dL Total Bilirubin 1.6 H (0.2-1.0) mg/dL AST 16 (15-37) U/L ALT 26 (12-78) U/L Alkaline Phosphatase 63 (46-116) IU/L Total Protein 7.4 (6.4-8.2) g/dL Albumin 3.9 (3.4-5.0) g/dL Specimen Type Urine Color Urine Appearance Urine pH (5.0-9.0) Ur Specific [place] (1.005-1.030) Urine Protein (NEGATIVE) mg/dL Urine Glucose (UA) (NEGATIVE) mg/dL Urine Ketones (NEGATIVE) mg/dL Urine Occult Blood (NEGATIVE) Urine Nitrite (NEGATIVE) Urine Bilirubin (NEGATIVE) Urine Urobilinogen (0.2-1.0) E.U./dL Ur Leukocyte Esterase (NEGATIVE) Urine RBC /HPF Urine WBC /HPF Ur Epithelial Cells /LPF Urine Bacteria (NONE TO FEW) /HPF Ketones 09/12/16 09/12/16 Range/Units 13:50 15:44 WBC (4.0-10.2) K/uL RBC (4.33-5.41) M/uL Hgb (13.1-16.8) g/dL Hct (39.0-49.0) % MCV (84.0-98.0) fL MCH (28.2-33.3) pg MCHC (31.7-36.0) g/dL RDW (11.2-14.1) % Plt Count (150-350) K/uL Neut % (Auto) (45.0-80.0) % Lymph % (Auto) (10.0-50.0) % Glynn % (Auto) (2.0-14.0) % Eos % (Auto) (0.0-5.0) % Baso % (Auto) (0.0-2.0) % Neut # (Auto) (1.40-7.00) K/uL Lymph # (Auto) (0.50-3.50) K/uL Glynn # (Auto) (0.00-1.00) K/uL Eos # (Auto) (0.00-0.50) K/uL Baso # (Auto) (0.00-0.20) K/uL Sodium (136-145) mmol/L Potassium (3.5-5.1) mmol/L Chloride (98-107) mmol/L Carbon Dioxide (21.0-32.0) mmol/L BUN (7-18) mg/dL Creatinine (0.51-1.17) mg/dL Est Cr Clr Drug Dosing mL/min Estimated GFR (MDRD) mL/min Glucose (74-106) mg/dL Lactic Acid (0.4-2.0) mmol/L Calcium (8.5-10.1) mg/dL Total Bilirubin (0.2-1.0) mg/dL AST (15-37) U/L ALT (12-78) U/L Alkaline Phosphatase (46-116) IU/L Total Protein (6.4-8.2) g/dL Albumin (3.4-5.0) g/dL Specimen Type Urinvoid Urine Color Light yellow Urine Appearance Clear Urine pH 7.0 (5.0-9.0) Ur Specific [place] 1.015 (1.005-1.030) Urine Protein Negative (NEGATIVE) mg/dL Urine Glucose (UA) Negative (NEGATIVE) mg/dL Urine Ketones Negative (NEGATIVE) mg/dL Urine Occult Blood Negative (NEGATIVE) Urine Nitrite Negative (NEGATIVE) Urine Bilirubin Negative (NEGATIVE) Urine Urobilinogen 0.2 (0.2-1.0) E.U./dL Ur Leukocyte Esterase Negative (NEGATIVE) Urine RBC Not seen /HPF Urine WBC Not seen /HPF Ur Epithelial Cells Rare /LPF Urine Bacteria Not seen (NONE TO FEW) /HPF Ketones Negative Meds: Medications Generic Name Dose Route Start Last Admin Trade Name Fremarquez PRN Reason Stop Dose Admin Sodium Chloride 10 ml 09/12/16 13:49 09/12/16 14:13 Saline Flush FLUSH 10 ml ASDIRECTED PRN Administration Keep Vein Open Discontinued Medications Generic Name Dose Route Start Last Admin Trade Name Freq PRN Reason Stop Dose Admin Sodium Chloride 1,000 mls @ 999 mls/hr 09/12/16 14:12 09/12/16 14:15 Normal Saline IV 09/12/16 15:12 999 mls/hr .BOLUS ONE Administration Sodium Chloride 1,000 mls @ 999 mls/hr 09/12/16 15:23 09/12/16 15:42 Normal Saline IV 09/12/16 16:23 999 mls/hr .BOLUS ONE Administration Ondansetron HCl 4 mg 09/12/16 13:50 09/12/16 14:13 Zofran IVPUSH 09/12/16 13:51 4 mg ONETIME ONE Administration Potassium Chloride 20 meq 09/12/16 14:27 09/12/16 15:41 Klor-Con M20 PO 09/12/16 14:28 20 meq ONETIME ONE Administration - Radiology Interpretation Free Text/Narrative:: Head CT showed no acute changes. - Re-Assessments/Exams Free Text/Narrative Re-Assessment/Exam: 09/12/16 15:19 Patient had baseline labs performed. IV NS and Zofran given. Refused head CT. Given recent head trauma and complaint of nausea/emesis and not quite fully recovering from fall last month recommended repeat head CT to rule out changes such as subdural. Patient refused. He insisted that this still felt like a virus. WBC normal. K still lower at 3.2, Lactic Acid still elevated at 3.9 when compared to last month's labs. Glucose 131. Noted to have elevated respiratory rate when first arrived but denied SOB. Once he was resting/sleeping rate decreased to under 10 breaths per minute. Free Text/Narrative Re-Assessment/Exam: 09/12/16 19:36 Patient received several liters of IV fluid. Able to urinate. Nausea improved. Dizziness when standing continued. Patient gave OK to get CT scan at this point in time. CT performed. Stat read requested. No Stat report received from Radiology for prolonged time. Ultimately copier repair technician placed phone call to [facility] and asked for official read of scan. Typed report faxed to us. Received in ER after 7pm. No acute changes. Patient had continued to sleep after CT performed. Vital signs stable. Rechecked. Overall appeared improved. More animated in conversation. Discussed lab and CT results, as well as continued complaint of dizziness. Also reviewed continued elevated lactic acid and lower K. It is unknown if lactic acid elevation is acute with today's illness, or if it has persisted since patient seen one month ago. Patient firmly wanted to be discharged home at this time and did not wish to have any further evaluation. He said that lightheadedness had improved, and promised to return for re-evaluation if things worsen or if no significant improvement tomorrow. When it was brought up that he had said that he hadn't felt completely normal since the head injury/syncopal episode last month, he said that overall he has been feeling pretty good in interim. Differential includes acute viral gastroenteritis, however further workup may be needed if lightheadedness persists or if patient has further syncopal type episodes. Departure - Departure Time of Disposition: 19:47 Disposition: Home, Self-Care 01 Condition: good Clinical Impression: Gastroenteritis, Dehydration, Dizziness, Hypokalemia, Lactic acid increased, Hyperbilirubinemia Nausea & vomiting Qualifiers: Vomiting type: unspecified Vomiting Intractability: non-intractable Qualified Code(s): R11.2 - Nausea with vomiting, unspecified - Discharge Information Forms: ED Department Discharge Additional Instructions: Home, rest. Clear fluids only tonight. Advance diet as tolerated tomorrow. Return to ER if you have sudden worsening symptoms. Follow up if no significant improvement within the next 24-48 hours. Follow up with primary clinic within 1-2 weeks to have potassium rechecked. May need lactic acid rechecked. You may need to take a potassium supplement if the level continues to be low. - My Orders Last 24 Hours: My Active Orders 09/12/16 13:49 Sodium Chloride 0.9% [Saline Flush] 10 ml FLUSH ASDIRECTED PRN 09/12/16 13:50 Saline Lock Insert [OM.PC] Stat 09/12/16 15:45 PROLACTIN [REF] Stat 09/12/16 16:47 Head wo Cont [CT] Stat - Assessment/Plan Last 24 Hours: My Active Orders 09/12/16 13:49 Sodium Chloride 0.9% [Saline Flush] 10 ml FLUSH ASDIRECTED PRN 09/12/16 13:50 Saline Lock Insert [OM.PC] Stat 09/12/16 15:45 PROLACTIN [REF] Stat 09/12/16 16:47 Head wo Cont [CT] Stat
[2016-09-12] MEDS: Sodium Chloride 0.9% 10 ML Syringe FLUSH PRN ×2 (14:13→19:56)
[2016-09-12 14:15] LABS: CHLORIDE,CL 102 mmol/L (98-107); SODIUM,NA 139 mmol/L (136-145)
[2016-09-12] MEDS ORDERED: Potassium Chloride 20 MEQ Tab.ER PO ONE (14:27)
[2016-09-12 19:43] VITALS: BP 114/87
[2016-09-12] MEDS ORDERED: Potassium Chloride 10 MEQ Tab.ER PO ONE (19:46)
[2016-09-12] MEDS ORDERED: Meclizine 25 MG Tab PO ONE (19:46)
== END 2016-09-12 20:10 | disposition home or self-care (01) ==
LOC: LL.ED 13:12
DX: K52.9 Noninfective gastroenteritis and colitis, unspecified (principal); R42 Dizziness and giddiness; E86.0 Dehydration; E80.6 Other disorders of bilirubin metabolism
CPT/HCPCS: 36415; 70450; 80053; 81001; 82009; 83605; 84146; 85025; 96361; 96374; 96376; 99284; A9270; J2405; J7030; J7050

== ENCOUNTER 2018-09-24 07:10 | Emergency (ER) | payer BC ==
[2018-09-24] MEDS ORDERED: Ondansetron 4 MG/2 ML SDV IVPUSH ONE (07:15)
[2018-09-24] MEDS ORDERED: Sodium Chloride 0.9% 10 ML Syringe FLUSH PRN ×2 (07:22→07:29)
[2018-09-24] MEDS ORDERED: Sodium Chloride 0.9% 1,000 ML IV SCH ×2 (07:30→09:46)
[2018-09-24 07:38] LABS: CHLORIDE,CL 101 mmol/L (98-107); SODIUM,NA 141 mmol/L (136-145)
[2018-09-24] MEDS: Potassium Chloride 10 MEQ in Premix Bag 1 BAG IV SCH ×4 (07:56→11:55)
--- NOTE | 2018-09-24 08:54 | EDM.PDOC ---
ED HPI GENERAL MEDICAL PROBLEM - General Chief Complaint: General Stated Complaint: syncope, vomitting Time Seen by Provider: 09/24/18 07:20 Source of Information: Reports: Patient, EMS History Limitations: Reports: No Limitations - History of Present Illness INITIAL COMMENTS - FREE TEXT/NARRATIVE: Patient is a 38-year-old who is seen in clinic with pain syncopal episode apparently he was at work became lightheaded when outside to some pressure then came in as he was coming and he felt very lightheaded and went down at that time he was with coworker he was held and did not hit his head at this time he had multiple emesis and was brought in for evaluation review chart patient has had multiple similar events 3 years ago at that time it was noted that he was hypokalemic and had a CT which was essentially negative he was worked up and discharged. Onset: Today, Sudden Duration: Minutes:, Improving Location: Reports: Head Severity: Moderate Improves with: Reports: Rest (And hydration) Worsens with: Reports: None Context: Reports: Activity - Related Data Allergies Allergy/AdvReac Type Severity Reaction Status Date / Time No Known Allergies Allergy Verified 09/24/18 07:32 Home Meds: Home Meds Ciprofloxacin [Ciprofloxacin HCl] 1 tab PO BID 09/24/18 [History] Mefloquine HCl 1 tab PO WEEKLY 09/24/18 [History] amLODIPine Besylate [Amlodipine Besylate] 1 tab PO DAILY 09/24/18 [History] Past Medical History - Past Health History Medical/Surgical History: Denies Medical/Surgical History (Unable to obtain complete history however no her previous surgeries, chronic illnesses, previous seizures, known developmental delay, etc.) Cardiovascular History: Reports: Hypertension Respiratory History: Reports: TB Other Respiratory History: 2003 tested positive for TB and was treated Musculoskeletal History: Reports: Fracture, Other (See Below) Other Musculoskeletal History: nasal fracture Neurological History: Reports: Other (See Below) Other Neuro History: several incidents of syncope with emesis Psychiatric History: Reports: None - Infectious Disease History Infectious Disease History: Reports: TB Social & Family History - Tobacco Use Smoking Status *Q: Never Smoker - Caffeine Use Caffeine Use: Reports: Coffee, Soda - Recreational Drug Use Recreational Drug Use: No ED ROS GENERAL - Review of Systems Review Of Systems: See Below Constitutional: Reports: Weakness, Fatigue HEENT: Reports: No Symptoms Respiratory: Reports: No Symptoms Cardiovascular: Reports: No Symptoms Endocrine: Reports: No Symptoms GI/Abdominal: Reports: No Symptoms : Reports: No Symptoms Musculoskeletal: Reports: No Symptoms Skin: Reports: No Symptoms Neurological: Reports: Dizziness, Syncope Psychiatric: Reports: No Symptoms ED EXAM, GENERAL - Physical Exam Exam: See Below Exam Limited By: No Limitations General Appearance: Alert, WD/WN, No Apparent Distress Ears: Normal External Exam, Normal Canal, Hearing Grossly Normal, Normal TMs Nose: Normal Inspection, Normal Mucosa, No Blood Throat/Mouth: Normal Inspection, Normal Lips, Normal Teeth, Normal Gums, Normal Oropharynx, Normal Voice, No Airway Compromise Head: Atraumatic, Normocephalic Neck: Normal Inspection, Supple, Non-Tender, Full Range of Motion Respiratory/Chest: No Respiratory Distress, Lungs Clear, Normal Breath Sounds, No Accessory Muscle Use, Chest Non-Tender Cardiovascular: Normal Peripheral Pulses, Regular Rate, Rhythm, No Edema, No Gallop, No JVD, No Murmur, No Rub GI/Abdominal: Normal Bowel Sounds (Male) Exam: No Hernia, Normal Inspection, Normal Prostate, Circumcised Rectal (Males) Exam: Prostate Normal, Deferred Extremities: Normal Inspection, Normal Range of Motion, Non-Tender, Normal Capillary Refill, No Pedal Edema Neurological: Alert, Oriented, CN II-XII Intact, Normal Cognition, Normal Gait, Normal Reflexes, No Motor/Sensory Deficits Psychiatric: Normal Affect, Normal Mood Skin Exam: Warm, Dry, Intact, Normal Color, No Rash Lymphatic: No Adenopathy Course - Vital Signs Last Recorded V/S: Last Vital Signs Temp 97 F 09/24/18 07:10 Pulse 73 09/24/18 08:42 Resp 18 09/24/18 08:42 BP 125/95 H 09/24/18 08:42 Pulse Ox 100 09/24/18 08:42 - Orders/Labs/Meds Orders: Active Orders 24 hr Category Date Time Status EKG Documentation Completion [RC] ASDIRECTED Care 09/24/18 07:42 Active Head wo Cont [CT] Stat Exams 09/24/18 08:57 Ordered Potassium Chloride [KCl 10 MEQ in Water 50 ML] 10 meq Med 09/24/18 08:00 Active Premix Bag 1 bag IV Q1H Sodium Chloride 0.9% [Normal Saline] 1,000 ml Med 09/24/18 07:30 Active IV ASDIRECTED Sodium Chloride 0.9% [Saline Flush] Med 09/24/18 07:22 Active 10 ml FLUSH ASDIRECTED PRN Sodium Chloride 0.9% [Saline Flush] Med 09/24/18 07:29 Active 10 ml FLUSH ASDIRECTED PRN Saline Lock Insert [OM.PC] Stat Oth 09/24/18 07:22 Ordered EKG 12 Lead [EK] Stat Ther 09/24/18 07:42 Ordered Medication Orders Sodium Chloride (Normal Saline) 1,000 mls @ 999 mls/hr IV ASDIRECTED THERESA Last Admin: 09/24/18 07:38 Dose: 999 mls/hr Potassium Chloride 10 meq/ (Premix) 50 mls @ 50 mls/hr IV Q1H THERESA Stop: 09/24/18 11:59 Last Admin: 09/24/18 08:58 Dose: 50 mls/hr Infusion: 09/24/18 08:56 Dose: 50 mls/hr Admin: 09/24/18 07:56 Dose: 50 mls/hr Sodium Chloride (Saline Flush) 10 ml FLUSH ASDIRECTED PRN PRN Reason: Keep Vein Open Last Admin: 09/24/18 07:30 Dose: 10 ml Sodium Chloride (Saline Flush) 10 ml FLUSH ASDIRECTED PRN PRN Reason: Keep Vein Open Labs: Laboratory Tests 09/24/18 09/24/18 09/24/18 Range/Units 07:15 07:15 07:15 WBC 9.7 (4.0-10.2) K/uL RBC 5.54 H (4.33-5.41) M/uL Hgb 16.5 D (13.1-16.8) g/dL Hct 45.9 (39.0-49.0) % MCV 82.9 L (84.0-98.0) fL MCH 29.8 (28.2-33.3) pg MCHC 35.9 (31.7-36.0) g/dL RDW 13.0 (11.2-14.1) % Plt Count 228 (150-350) K/uL Neut % (Auto) 32.6 L (45.0-80.0) % Lymph % (Auto) 55.5 H (10.0-50.0) % Hughes % (Auto) 9.7 (2.0-14.0) % Eos % (Auto) 1.9 (0.0-5.0) % Baso % (Auto) 0.3 (0.0-2.0) % Neut # (Auto) 3.17 (1.40-7.00) K/uL Lymph # (Auto) 5.39 H (0.50-3.50) K/uL Hughes # (Auto) 0.94 (0.00-1.00) K/uL Eos # (Auto) 0.18 (0.00-0.50) K/uL Baso # (Auto) 0.03 (0.00-0.20) K/uL Sodium 141 (136-145) mmol/L Potassium 2.8 L* (3.5-5.1) mmol/L Chloride 101 (98-107) mmol/L Carbon Dioxide 25.6 (21.0-32.0) mmol/L BUN 11 (7-18) mg/dL Creatinine 0.97 (0.51-1.17) mg/dL Est Cr Clr Drug Dosing TNP Estimated GFR (MDRD) > 60 mL/min Glucose 160 H (74-106) mg/dL Lactic Acid 3.7 H (0.4-2.0) mmol/L Calcium 9.0 (8.5-10.1) mg/dL Total Bilirubin 1.3 H (0.2-1.0) mg/dL AST 16 (15-37) U/L ALT 22 (12-78) U/L Alkaline Phosphatase 70 (46-116) IU/L Creatine Kinase 155 (26-308) U/L Troponin I (0.000-0.056) ng/mL Total Protein 8.0 (6.4-8.2) g/dL Albumin 4.2 (3.4-5.0) g/dL 09/24/18 Range/Units 07:15 WBC (4.0-10.2) K/uL RBC (4.33-5.41) M/uL Hgb (13.1-16.8) g/dL Hct (39.0-49.0) % MCV (84.0-98.0) fL MCH (28.2-33.3) pg MCHC (31.7-36.0) g/dL RDW (11.2-14.1) % Plt Count (150-350) K/uL Neut % (Auto) (45.0-80.0) % Lymph % (Auto) (10.0-50.0) % Hughes % (Auto) (2.0-14.0) % Eos % (Auto) (0.0-5.0) % Baso % (Auto) (0.0-2.0) % Neut # (Auto) (1.40-7.00) K/uL Lymph # (Auto) (0.50-3.50) K/uL Hughes # (Auto) (0.00-1.00) K/uL Eos # (Auto) (0.00-0.50) K/uL Baso # (Auto) (0.00-0.20) K/uL Sodium (136-145) mmol/L Potassium (3.5-5.1) mmol/L Chloride (98-107) mmol/L Carbon Dioxide (21.0-32.0) mmol/L BUN (7-18) mg/dL Creatinine (0.51-1.17) mg/dL Est Cr Clr Drug Dosing Estimated GFR (MDRD) mL/min Glucose (74-106) mg/dL Lactic Acid (0.4-2.0) mmol/L Calcium (8.5-10.1) mg/dL Total Bilirubin (0.2-1.0) mg/dL AST (15-37) U/L ALT (12-78) U/L Alkaline Phosphatase (46-116) IU/L Creatine Kinase (26-308) U/L Troponin I 0.000 (0.000-0.056) ng/mL Total Protein (6.4-8.2) g/dL Albumin (3.4-5.0) g/dL Meds: Medications Generic Name Dose Route Start Last Admin Trade Name Freq PRN Reason Stop Dose Admin Sodium Chloride 1,000 mls @ 999 mls/hr 09/24/18 07:30 09/24/18 07:38 Normal Saline IV 999 mls/hr ASDIRECTED THERESA Administration Potassium Chloride 10 meq/ 50 mls @ 50 mls/hr 09/24/18 08:00 09/24/18 08:58 Premix IV 09/24/18 11:59 50 mls/hr Q1H THERESA Administration Sodium Chloride 10 ml 09/24/18 07:29 09/24/18 07:30 Saline Flush FLUSH 10 ml ASDIRECTED PRN Administration Keep Vein Open Sodium Chloride 10 ml 09/24/18 07:22 Saline Flush FLUSH ASDIRECTED PRN Keep Vein Open Discontinued Medications Generic Name Dose Route Start Last Admin Trade Name Freq PRN Reason Stop Dose Admin Ondansetron HCl 8 mg 09/24/18 07:15 09/24/18 07:22 Zofran IVPUSH 09/24/18 07:16 8 mg ONETIME ONE Administration Departure - Departure Time of Disposition: 09:28 Disposition: DC/Tfer to [facility] 02 Clinical Impression: Syncopal episodes - Discharge Information *PRESCRIPTION DRUG MONITORING PROGRAM REVIEWED*: No *COPY OF PRESCRIPTION DRUG MONITORING REPORT IN PATIENT ANOOP: No (Patient will be transferred to [place] prior to transfer a CT of the head was done at the request of the hospitalist Luisito we did review his medications he is on Cipro which is known to cause hypokalemia he's also on mefloquuinije and amlodipine) Referrals: PCP,Unknown [Primary Care Provider] - Forms: ED Department Discharge - My Orders Last 24 Hours: My Active Orders 09/24/18 07:22 Sodium Chloride 0.9% [Saline Flush] 10 ml FLUSH ASDIRECTED PRN Saline Lock Insert [OM.PC] Stat 09/24/18 07:29 Sodium Chloride 0.9% [Saline Flush] 10 ml FLUSH ASDIRECTED PRN 09/24/18 07:30 Sodium Chloride 0.9% [Normal Saline] 1,000 ml IV ASDIRECTED 09/24/18 07:42 EKG Documentation Completion [RC] ASDIRECTED EKG 12 Lead [EK] Stat 09/24/18 08:00 Potassium Chloride [KCl 10 MEQ in Water 50 ML] 10 meq Premix Bag 1 bag IV Q1H 09/24/18 08:57 Head wo Cont [CT] Stat - Assessment/Plan Last 24 Hours: My Active Orders 09/24/18 07:22 Sodium Chloride 0.9% [Saline Flush] 10 ml FLUSH ASDIRECTED PRN Saline Lock Insert [OM.PC] Stat 09/24/18 07:29 Sodium Chloride 0.9% [Saline Flush] 10 ml FLUSH ASDIRECTED PRN 09/24/18 07:30 Sodium Chloride 0.9% [Normal Saline] 1,000 ml IV ASDIRECTED 09/24/18 07:42 EKG Documentation Completion [RC] ASDIRECTED EKG 12 Lead [EK] Stat 09/24/18 08:00 Potassium Chloride [KCl 10 MEQ in Water 50 ML] 10 meq Premix Bag 1 bag IV Q1H 09/24/18 08:57 Head wo Cont [CT] Stat
[2018-09-24 12:33] VITALS: BP 123/87
== END 2018-09-24 12:05 ==
LOC: LL.ED 07:10 → SUPCPDRO 07:10 → LL.ED 12:05
DX: R55 Syncope and collapse (principal); I10 Essential (primary) hypertension; Z79.899 Other long term (current) drug therapy
CPT/HCPCS: 36415; 70450; 80053; 82550; 83605; 84484; 85025; 96361; 96365; 96366; 96375; 96376; 99285; A4217; J2405; J3480; J7030